=== PATIENT | male | born 1965 | race Caucasian/White ===

== ENCOUNTER 2018-02-18 13:00 | Emergency (ER) | payer OTHER ==
[2018-02-18] MEDS: TRIMETHOPRIM/SULFAMETHOX (DS) TAB PO (15:36)
[2018-02-18] MEDS: CEPHALEXIN 500 MG CAP PO (15:36)
[2018-02-18] MEDS: KETOROLAC 60 MG INJ IM (15:38)
[2018-02-18] MEDS: LIDOCAINE 4% CR TOP (16:21)
[2018-02-18] MEDS: LIDOCAINE 1% (MDV) 10 ML INJ INFIL (16:21)
== END 2018-02-18 17:30 | disposition home or self-care (01) ==
LOC: FTE 17:30
DX: K61.1 Rectal abscess (principal)
CPT/HCPCS: 10060; 96372; 99284-25

== ENCOUNTER 2018-02-24 15:02 | Inpatient (IN) | payer OTHER ==
[2018-02-24] MEDS ORDERED: DOCUSATE SODIUM 100 MG CAP PO (16:30)
[2018-02-24] MEDS ORDERED: NACL 0.9% 3 ML SYG IV (16:30)
[2018-02-24] MEDS ORDERED: ONDANSETRON 4 MG INJ IV (16:30)
[2018-02-24] MEDS ORDERED: VANCOMYCIN IV PER PHARMACY XX (16:30)
[2018-02-24] MEDS ORDERED: ACETAMINOPHEN 325 MG TAB PO (16:30)
[2018-02-24] MEDS ORDERED: GLUCOSE GEL 15 GRAM TUBE PO ×2 (17:30)
[2018-02-24] MEDS ORDERED: DEXTROSE 50% 50 ML SYRINGE IV ×2 (17:30)
[2018-02-24] MEDS ORDERED: GLUCAGON 1 MG INJ IM (17:30)
[2018-02-24] MEDS ORDERED: GLUCOSE GEL 15 GRAM TUBE BUCCAL (17:30)
[2018-02-24] MEDS: INSULIN ASPART [NOVOLOG] 3 ML PEN SC ×3 (18:20→22:15)
[2018-02-24] MEDS: HYDROCODONE/APAP (5/325) TAB PO (20:44)
[2018-02-24] MEDS: DOCUSATE SODIUM 100 MG CAP PO (22:11)
[2018-02-24] MEDS: INSULIN GLARGINE [LANtus] 3 ML PEN SC (22:16)
[2018-02-25] MEDS: PIPER-TAZO 3.375 GM IV (PMX) 100 ML IVPB ×4 (00:25→21:47)
[2018-02-25] MEDS: VANCOMYCIN 1.25 GM in SOD CHLORIDE 0.9% 250 ML IVPB ×3 (00:25→22:15)
[2018-02-25] MEDS: SOD CHLORIDE 0.9% 500 ML IV (00:30)
[2018-02-25] MEDS: morphine 2 MG INJ IV ×3 (00:57→21:48)
[2018-02-25] MEDS: ACCU-CHEK XX (02:57)
[2018-02-25 04:54] LABS: ADD MAN DIFF? NO
[2018-02-25 04:56] LABS: BASOPHIL # 0.1 10^3/ul (0.0-0.1); BASOPHILS % 0.7 % (0.0-2.0); EOSINOPHILS # 0.2 10^3/ul (0.0-0.5); EOSINOPHILS % 1.5 % (0.0-7.0); HEMATOCRIT 38.2 % (42.0-52.0); HEMOGLOBIN 13.4 g/dl (14.0-18.0); LYMPHOCYTES # 2.8 10^3/ul (0.8-2.9); LYMPHOCYTES % 24.6 % (15.0-51.0); MEAN CORPUSCULAR HEMOGLOBIN 30.2 pg (29.0-33.0); MEAN CORPUSCULAR HGB CONC 35.1 g/dl (32.0-37.0); MEAN CORPUSCULAR VOLUME 86.2 fl (82.0-101.0); MEAN PLATELET VOLUME 9.2 fl (7.4-10.4); MONOCYTE # 1.1 10^3/ul (0.3-0.9); MONOCYTES % 9.4 % (0.0-11.0); NEUTROPHILS % 61.5 % (39.0-77.0); PLATELET COUNT 339 10^3/UL (140-415); POSITIVE DIFF @See below; RED BLOOD COUNT 4.43 10^6/ul (4.70-6.10); RED CELL DISTRIBUTION WIDTH 11.7 % (11.5-14.5)
[2018-02-25 04:56] LABS: WHITE BLOOD COUNT 11.3 10^3/ul (4.8-10.8)
[2018-02-25 05:28] LABS: ANION GAP 17 (8-16); BLOOD UREA NITROGEN 15 mg/dl (7-20); CALCIUM 8.9 mg/dl (8.4-10.2); CARBON DIOXIDE 25 mmol/L (21-31); CHLORIDE 104 mmol/L (97-110); CREATININE 0.68 mg/dl (0.61-1.24); GLUCOSE 321 mg/dl (70-220); MAGNESIUM 1.7 mg/dl (1.7-2.5); PHOSPHORUS 3.6 mg/dl (2.5-4.9); POTASSIUM 4.2 mmol/L (3.5-5.1); SODIUM 142 mmol/L (135-144)
[2018-02-25 06:03] LABS: HEMOGLOBIN A1C 10.4 % (0-5.9)
[2018-02-25] MEDS: HYDROCODONE/APAP (5/325) TAB PO ×2 (06:11→14:57)
[2018-02-25 06:30] LABS: HIV 1&2 ANTIBODY NEGATIVE (NEGATIVE)
[2018-02-25 08:00] LABS: BAND NEUTROPHILS #M 0.3 10^3/ul (0.0-0.6); BAND NEUTROPHILS % (M) 3 % (0-4); BASOPHIL #M 0.1 10^3/ul (0.0-0.0); BASOPHILS % (M) 1 % (0-2); EOSINOPHILS % (M) 3 % (0-7); LYMPHOCYTES #M 2.3 10^3/ul (0.8-2.9); LYMPHOCYTES % (M) 21 % (15-51); METAMYELOCYTES #M 0.1 10^3/ul (0.0-0.0); METAMYELOCYTES %M 1 % (0-0); MONOCYTE #M 0.3 10^3/ul (0.3-0.9); MONOCYTES % (M) 3 % (0-11); MYELOCYTES #M 0.2 10^3/ul (0.0-0.0); MYELOCYTES % (M) 2 % (0-0); PLATELET ESTIMATE NORMAL; REACTIVE LYMPHOCYTES #M 0.4 10^3/ul (0.0-0.0); REACTIVE LYMPHOCYTES% (M) 4 % (0-0); SEGMENTED NEUTROPHILS (M) % 62 % (39-77); SMUDGE%M 1 % (0-0)
[2018-02-25] MEDS: INSULIN ASPART [NOVOLOG] 3 ML PEN SC ×6 (08:11→21:53)
[2018-02-25] MEDS: DOCUSATE SODIUM 100 MG CAP PO ×2 (08:12→21:47)
[2018-02-25] MEDS: INSULIN GLARGINE [LANtus] 3 ML PEN SC ×2 (11:04→21:50)
[2018-02-25] MEDS ORDERED: HYDROmorphONE 0.5 MG/0.5 ML SYG IV (19:45)
[2018-02-25] MEDS: HYDROmorphONE 0.5 MG/0.5 ML SYG IV (19:55)
[2018-02-25 22:17] LABS: RAPID PLASMA REAGIN NONREACTIVE (NR)
[2018-02-26] MEDS: INSULIN ASPART [NOVOLOG] 3 ML PEN SC ×10 (00:43→22:13)
[2018-02-26] MEDS: morphine 2 MG INJ IV ×3 (02:30→16:31)
[2018-02-26] MEDS: ACCU-CHEK XX (02:34)
[2018-02-26] MEDS: HYDROCODONE/APAP (5/325) TAB PO ×2 (05:12→17:59)
[2018-02-26 05:16] LABS: ADD MAN DIFF? NO
[2018-02-26 05:19] LABS: WHITE BLOOD COUNT 12.4 10^3/ul (4.8-10.8)
[2018-02-26 05:19] LABS: BASOPHIL # 0.1 10^3/ul (0.0-0.1); BASOPHILS % 0.5 % (0.0-2.0); EOSINOPHILS # 0.2 10^3/ul (0.0-0.5); EOSINOPHILS % 1.4 % (0.0-7.0); HEMATOCRIT 38.5 % (42.0-52.0); HEMOGLOBIN 13.2 g/dl (14.0-18.0); LYMPHOCYTES # 2.8 10^3/ul (0.8-2.9); LYMPHOCYTES % 22.8 % (15.0-51.0); MEAN CORPUSCULAR HEMOGLOBIN 29.8 pg (29.0-33.0); MEAN CORPUSCULAR HGB CONC 34.3 g/dl (32.0-37.0); MEAN CORPUSCULAR VOLUME 86.9 fl (82.0-101.0); MEAN PLATELET VOLUME 9.2 fl (7.4-10.4); MONOCYTES % 8.3 % (0.0-11.0); NEUTROPHIL # 8.2 10^3/ul (1.6-7.5); NEUTROPHILS % 65.6 % (39.0-77.0); PLATELET COUNT 367 10^3/UL (140-415); RED BLOOD COUNT 4.43 10^6/ul (4.70-6.10); RED CELL DISTRIBUTION WIDTH 11.8 % (11.5-14.5)
[2018-02-26 06:08] LABS: ANION GAP 14 (8-16); BLOOD UREA NITROGEN 13 mg/dl (7-20); CALCIUM 8.9 mg/dl (8.4-10.2); CARBON DIOXIDE 27 mmol/L (21-31); CHLORIDE 108 mmol/L (97-110); CREATININE 0.61 mg/dl (0.61-1.24); GLUCOSE 157 mg/dl (70-220); MAGNESIUM 1.8 mg/dl (1.7-2.5); POTASSIUM 3.6 mmol/L (3.5-5.1); SODIUM 145 mmol/L (135-144)
[2018-02-26] MEDS: PIPER-TAZO 3.375 GM IV (PMX) 100 ML IVPB ×3 (06:09→22:11)
[2018-02-26] MEDS: DOCUSATE SODIUM 100 MG CAP PO ×2 (09:00→22:11)
[2018-02-26 10:40] LABS: VANCOMYCIN,TROUGH 8.7 ug/ml (10.0-20.0)
[2018-02-26] MEDS: VANCOMYCIN 1.25 GM in SOD CHLORIDE 0.9% 250 ML IVPB (12:31)
[2018-02-26] MEDS: SILVER NITRATE SWAB TOP (16:34)
[2018-02-26] MEDS: LIDOCAINE 1%/EPI 30 ML INJ INJ (16:34)
[2018-02-26] MEDS: SOD CHLORIDE 0.45% 1,000 ML IV ×2 (17:06→22:30)
[2018-02-26] MEDS: VANCOMYCIN 1 GM 250 ML IVPB (20:06)
[2018-02-26] MEDS: INSULIN GLARGINE [LANtus] 3 ML PEN SC (22:17)
[2018-02-27] MEDS ORDERED: ACCU-CHEK XX (02:00)
[2018-02-27] MEDS: ACCU-CHEK XX (02:25)
[2018-02-27] MEDS: PIPER-TAZO 3.375 GM IV (PMX) 100 ML IVPB ×2 (04:47→14:36)
[2018-02-27] MEDS: VANCOMYCIN 1 GM 250 ML IVPB ×2 (05:59→12:07)
[2018-02-27 06:33] LABS: ADD MAN DIFF? NO
[2018-02-27 06:43] LABS: WHITE BLOOD COUNT 8.8 10^3/ul (4.8-10.8)
[2018-02-27 06:43] LABS: BASOPHIL # 0.1 10^3/ul (0.0-0.1); BASOPHILS % 0.6 % (0.0-2.0); EOSINOPHILS # 0.2 10^3/ul (0.0-0.5); EOSINOPHILS % 1.7 % (0.0-7.0); HEMATOCRIT 37.1 % (42.0-52.0); HEMOGLOBIN 12.9 g/dl (14.0-18.0); LYMPHOCYTES # 2.7 10^3/ul (0.8-2.9); LYMPHOCYTES % 30.8 % (15.0-51.0); MEAN CORPUSCULAR HEMOGLOBIN 30.2 pg (29.0-33.0); MEAN CORPUSCULAR HGB CONC 34.8 g/dl (32.0-37.0); MEAN CORPUSCULAR VOLUME 86.9 fl (82.0-101.0); MEAN PLATELET VOLUME 9.3 fl (7.4-10.4); MONOCYTE # 0.6 10^3/ul (0.3-0.9); MONOCYTES % 7.2 % (0.0-11.0); NEUTROPHIL # 5.1 10^3/ul (1.6-7.5); NEUTROPHILS % 58.2 % (39.0-77.0); PLATELET COUNT 352 10^3/UL (140-415); RED BLOOD COUNT 4.27 10^6/ul (4.70-6.10); RED CELL DISTRIBUTION WIDTH 11.9 % (11.5-14.5)
[2018-02-27 07:01] LABS: ANION GAP 14 (8-16); BLOOD UREA NITROGEN 12 mg/dl (7-20); CALCIUM 8.8 mg/dl (8.4-10.2); CARBON DIOXIDE 26 mmol/L (21-31); CHLORIDE 108 mmol/L (97-110); CREATININE 0.61 mg/dl (0.61-1.24); GLUCOSE 183 mg/dl (70-220); POTASSIUM 3.8 mmol/L (3.5-5.1); SODIUM 144 mmol/L (135-144)
[2018-02-27] MEDS: SOD CHLORIDE 0.45% 1,000 ML IV (08:30)
[2018-02-27] MEDS: INSULIN ASPART [NOVOLOG] 3 ML PEN SC ×4 (08:46→12:10)
[2018-02-27] MEDS: DOCUSATE SODIUM 100 MG CAP PO (08:48)
[2018-02-27] MEDS ORDERED: morphine LIQ (10 MG/5 ML) CUP PO ×2 (16:30)
[2018-02-27] MEDS ORDERED: INSULIN GLARGINE [LANtus] 3 ML PEN SC (20:00)
== END 2018-02-27 16:10 | disposition home or self-care (01) | DRG 571 ==
LOC: PP2 02-26 07:34 → MS3 15:02
PROVIDERS: Family Medicine
PROC: 0JB90ZZ Excision of Buttock Subcutaneous Tissue and Fascia, Open Approach (ICD-10-PCS; principal; 2018-02-26)
DX: L03.317 Cellulitis of buttock (principal); E87.1 Hypo-osmolality and hyponatremia; R65.10 Systemic inflammatory response syndrome (SIRS) of non-infectious origin without acute organ dysfunction; K61.1 Rectal abscess; F17.200 Nicotine dependence, unspecified, uncomplicated; E11.65 Type 2 diabetes mellitus with hyperglycemia; B96.20 Unspecified Escherichia coli [E. coli] as the cause of diseases classified elsewhere; B95.5 Unspecified streptococcus as the cause of diseases classified elsewhere; Z16.12 Extended spectrum beta lactamase (ESBL) resistance
CPT/HCPCS: 80048; 80202; 82962; 83036; 83735; 84100; 85025; 86592; 86703; 87040; 87070